=== PATIENT | male | born 1960 | race Caucasian/White ===

== ENCOUNTER 2016-08-22 11:30 | Emergency (ER) | payer OTHER ==
[~2016-08-22] VITALS: Ht 182.9 cm; Wt 112.0 kg
[2016-08-22 11:35] VITALS: Ht 182.9 cm; Wt 112.0 kg
[2016-08-22] MEDS ORDERED: LISI10TA2 PO (13:23)
[2016-08-22] MEDS ORDERED: AMLO-147 PO (13:23)
[2016-08-22] MEDS ORDERED: RIVA20TA PO (13:23)
[2016-08-22] MEDS ORDERED: GABA300C16 PO (13:23)
[2016-08-22] MEDS ORDERED: ASPI-664 PO (13:24)
[2016-08-22] MEDS ORDERED: FURO20TA3 PO (13:24)
[2016-08-22] MEDS ORDERED: CARV25TA97 PO (13:24)
[2016-08-22] MEDS ORDERED: ATOR40TA68 PO (13:25)
[2016-08-22] MEDS ORDERED: GLIP5TAB13 PO (13:25)
[2016-08-22] MEDS ORDERED: SOD CHLORIDE 0.9% 1,000 ML IV ONE (14:00)
[2016-08-22] MEDS ORDERED: PIPER-TAZO 3.375 GM IV (PMX) 100 ML IVPB ONE (14:00)
[2016-08-22 14:31] LABS: BASOPHILS % 0.5 % (0.0-2.0); EOSINOPHILS # 0.1 10^3/ul (0.0-0.5); EOSINOPHILS % 1.8 % (0.0-7.0); HEMATOCRIT 55.3 % (42.0-52.0); HEMOGLOBIN 18.6 g/dl (14.0-18.0); LYMPHOCYTES # 2.4 10^3/ul (0.8-2.9); LYMPHOCYTES % 29.9 % (15.0-51.0); MEAN CORPUSCULAR HEMOGLOBIN 34.1 pg (29.0-33.0); MEAN CORPUSCULAR HGB CONC 33.7 g/dl (32.0-37.0); MEAN CORPUSCULAR VOLUME 101.3 fl (82.0-101.0); MEAN PLATELET VOLUME 8.3 fl (7.4-10.4); MONOCYTE # 0.6 10^3/ul (0.3-0.9); MONOCYTES % 7.4 % (0.0-11.0); NEUTROPHIL # 4.8 10^3/ul (1.6-7.5); NEUTROPHILS % 60.4 % (39.0-77.0); PLATELET COUNT 178 10^3/UL (140-440); RED BLOOD COUNT 5.46 10^6/ul (4.70-6.10); RED CELL DISTRIBUTION WIDTH 12.7 % (11.5-14.5); UNCORRECTED WBC 7.9 10^3/ul (4.8-10.8); WHITE BLOOD COUNT 7.9 10^3/ul (4.8-10.8)
[2016-08-22 14:36] LABS: CONDITION 1; LH ANALYZER COMMENTS 1
[2016-08-22 14:39] LABS: ALBUMIN 4.2 g/dl (3.3-4.9); CHLORIDE 102 mmol/L (97-110); SODIUM 144 mmol/L (135-144)
[2016-08-22 14:40] LABS: POTASSIUM 3.7 mmol/L (3.5-5.1)
[2016-08-22 14:42] LABS: ANION GAP 17 (8-16); ASPARTATE AMINO TRANSFERASE 42 IU/L (15-46); BILIRUBIN,INDIRECT 1.1 mg/dl (0-1.1); BILIRUBIN,TOTAL 1.1 mg/dl (0.2-1.3); CARBON DIOXIDE 29 mmol/L (21-31); CREATININE 1.25 mg/dl (0.61-1.24)
[2016-08-22 14:43] LABS: ALANINE AMINOTRANSFERASE 58 IU/L (13-69); ALBUMIN/GLOBULIN RATIO 1.16; ALKALINE PHOSPHATASE 75 IU/L (42-121); BLOOD UREA NITROGEN 13 mg/dl (7-20); CALCIUM 9.4 mg/dl (8.4-10.2); GLUCOSE 135 mg/dl (70-220); TOTAL PROTEIN 7.8 g/dl (6.1-8.1)
[2016-08-22 14:50] LABS: C-REACTIVE PROTEIN < 0.5 mg/dl (0.0-0.9)
--- NOTE | 2016-08-22 15:06 | RADRPT ---
PROCEDURE: XR Right Tibia-Fibula CLINICAL INDICATION: Ulcer right leg, rule out osteomyelitis TECHNIQUE: AP and lateral radiographs were submitted COMPARISON: None FINDINGS: Osseous structures: appear well mineralized and intact with no fracture or destructive process iden tified. Joint spaces: Moderate osteoarthritic changes seen about the patellar femoral and femoral tibial kyler nt spaces. Soft tissues: Vascular calcification is noted. No radiopaque foreign body year subcutaneous air is evident. IMPRESSION: 1. No osseous destruction is evident 2. Moderate osteoarthritic change seen about the femoral tibial and patellar femoral joint spaces. 3. Vascular calcification. Physician Brandi Date Time Electronically viewed and signed by Physician Brandi on 08/22/2016 15:06 /
[2016-08-22] MEDS ORDERED: IODIXANOL LOCM 100 ML BTL ONE (15:34)
[2016-08-22] MEDS ORDERED: SOD CHLORIDE 0.9% 100 ML ONE (15:34)
--- NOTE | 2016-08-22 16:10 | RADRPT ---
PROCEDURE: CT Chest with contrast. CLINICAL INDICATION: Smoker with wheezing. TECHNIQUE: Helical axial sections were obtained through the chest with intravenous contrast enhanc ement. 85 ml of Visipaque 320 was used for the intravenous contrast. Coronal and sagittal reformat deniz images were obtained from the axial source images. Total exam DLP is 788.61 mGy-cm. CTDIvol is 16.55 mGy. One or more of the following dose reduction techniques were used: Automated exposure con trol, adjustment of the mA and/or kV according to patient size, use of iterative reconstruction tech nique. COMPARISON: None FINDINGS: There is mild patchy bronchiolitis in the right lower lobe posteriorly. In addition, there is bronc hial wall thickening and mild bronchiectasis in both lower lobes with right worse than left. The jayjay ngs are clear with no other airspace or interstitial disease. There is no pulmonary nodule or mass lesion. There is no mediastinal or hilar lymphadenopathy or mass. There is no axillary, supraclavicular, or internal mammary lymphadenopathy. The thoracic aorta is not dilated. There is calcification in the aorta consistent with atherosclero sis. There is no aortic dissection. The heart size is normal. There is extensive coronary artery calcification. There is no pleural effusion or pericardial effusion. Images through the upper abdomen demonstrate normal visualized portions of the liver, spleen, and ad renals. IMPRESSION: 1. Mild patchy bronchiolitis in the right lower lobe posteriorly. 2. Bronchial wall thickening and mild bronchiectasis in both lower lobes with right worse than left . 3. Atherosclerosis. 4. Extensive coronary artery calcification. 5. Otherwise unremarkable contrast enhanced CT scan of the chest. RPTAT: QQ .Isidoro Borrero MD, Date Time Electronically viewed and signed by .Isidoro Borrero MD, on 08/22/2016 16:09 .R/
--- NOTE | 2016-08-22 16:47 | ERD ---
ER Documentation Chief Complaint Date/Time DATE: 08/22/16 TIME: 16:38 Chief Complaint right leg wound, not healing, hx dm sent to r/o osteomyelitis HPI Patient is a very pleasant gentleman who is sent over here for an ulceration on his right lower extremity. He states it started initially as a small wound that was caused by walking into some rebar. He says initially it looked like a bruise and that it looks like it had healed. He says then it started to pop open and draining some bloody fluid. He went to the urgent care where they cut it open and then sent him over here for possible bony infection. He says he has not been running any fevers, having any significant pain, any redness around the wound, any significant swelling, any pus draining from the wound, he has not noticed any bad smells, he has not had any chills or rigors. He also denies any chest pain, shortness of breath, coughing, congestion, rhinorrhea, sore throat, or otalgia. ROS All systems reviewed and are negative except as per history of present illness. Medications Home Meds Reported Medications Glipizide* (Glipizide*) 5 Mg Tablet, 5 MG PO AC BREAKFAST, TAB 08/22/16 Atorvastatin* (Atorvastatin*) 40 Mg Tablet, 40 MG PO QHS, #30 TAB 08/22/16 Furosemide* (Furosemide*) 20 Mg Tablet, 20 MG PO DAILY, #60 TAB 08/22/16 Aspirin (Low Dose Aspirin) 81 Mg Tablet.dr, 81 MG PO DAILY, #30 TAB 08/22/16 Carvedilol* (Coreg*) 25 Mg Tablet, 25 MG PO BID, #60 TAB 08/22/16 Amlodipine Besylate* (Amlodipine Besylate*) 10 Mg Tablet, 10 MG PO DAILY, #30 TAB 08/22/16 Gabapentin* (Gabapentin*) 300 Mg Capsule, 300 MG PO TID, #90 CAP 08/22/16 Lisinopril* (Lisinopril*) 10 Mg Tablet, 10 MG PO DAILY, #30 TAB 08/22/16 Rivaroxaban* (Xarelto*) 20 Mg Tablet, 20 MG PO WITH DINNER, TAB 08/22/16 Allergies Allergies: Coded Allergies: No Known Allergy (Unverified , 08/22/16) PMhx/Soc Hx Cardiac Disorders: Yes Hx Miscellaneous Medical Probl: Yes (Diabetes) Smoking Status: Former smoker FmHx Family History: diabetes Physical Exam Vitals Vital Signs Date Time Temp Pulse Resp B/P Pulse Ox O2 Delivery O2 Flow Rate FiO2 08/22/16 11:35 98.0 72 20 142/106 98 Physical Exam Const: Well-developed well-nourished male sitting on the bed calmly Head: Atraumatic normocephalic Eyes: Normal Conjunctiva ENT: Normal External Ears, Nose and Mouth. Neck: Full range of motion..~ No meningismus. Resp: Patient has an end expiratory wheeze noted only on the right side. Cardio: Regular rate and rhythm, no murmurs Abd: Soft, non tender, non distended. Normal bowel sounds Skin: No petechiae or rashes, patient has a small ulceration noted on his right anterior salas from which is oozing a small amount of serous sanguinous blood, there is some mild surrounding erythema with warmth Back: No midline or flank tenderness Ext: No cyanosis, or edema, no calf pain or tenderness Neur: Awake and alert Psych: Normal Mood and Affect Result Diagram: 08/22/16 1415 08/22/16 1415 Results 24 hrs Laboratory Tests Test 08/22/16 14:15 Alanine Aminotransferase (ALT/SGPT) 58IU/L Albumin 4.2g/dl Albumin/Globulin Ratio 1.16 Alkaline Phosphatase 75IU/L Anion Gap 17 Aspartate Amino Transf (AST/SGOT) 42IU/L Basophils # 0.010^3/ul Basophils % 0.5% Blood Morphology Comment Blood Urea Nitrogen 13mg/dl C-Reactive Protein < 0.5mg/dl Calcium Level 9.4mg/dl Carbon Dioxide Level 29mmol/L Chloride Level 102mmol/L Creatinine 1.25mg/dl Direct Bilirubin 0.00mg/dl Eosinophils # 0.110^3/ul Eosinophils % 1.8% Globulin 3.60g/dl Glucose Level 135mg/dl Hematocrit 55.3% Hemoglobin 18.6g/dl Indirect Bilirubin 1.1mg/dl Lymphocytes # 2.410^3/ul Lymphocytes % 29.9% Mean Corpuscular Hemoglobin 34.1pg Mean Corpuscular Hemoglobin Concent 33.7g/dl Mean Corpuscular Volume 101.3fl Mean Platelet Volume 8.3fl Monocytes # 0.610^3/ul Monocytes % 7.4% Neutrophils # 4.810^3/ul Neutrophils % 60.4% Nucleated Red Blood Cells # 0.010^3/ul Nucleated Red Blood Cells % 0.0/100WBC Platelet Count 78426^3/UL Potassium Level 3.7mmol/L Red Blood Count 5.4610^6/ul Red Cell Distribution Width 12.7% Sodium Level 144mmol/L Total Bilirubin 1.1mg/dl Total Protein 7.8g/dl White Blood Count 7.910^3/ul Current Medications Medications (Trade) Dose Ordered Sig/Patrice Route PRN Reason Start Time Stop Time Status Last Admin Dose Admin Piperacillin Sod/ Tazobactam Sod 100 ml @ 200 mls/hr ONCE ONCE IVPB 08/22/16 14:00 08/22/16 14:29 DC 08/22/16 15:17 Sodium Chloride (NS) 1,000 ml @ 1,000 mls/hr Q1H ONCE IV 08/22/16 14:00 08/22/16 14:59 DC 08/22/16 15:17 IV Flush 10 ml 10 ml STK-MED ONCE .ROUTE 08/22/16 15:34 08/22/16 15:35 DC 08/22/16 15:34 Sodium Chloride (NS) 100 ml @ ud STK-MED ONCE .ROUTE 08/22/16 15:34 08/22/16 15:35 DC 08/22/16 15:34 Iodixanol (Visipaque Locm) 100 ml STK-MED ONCE .ROUTE 08/22/16 15:34 08/22/16 15:35 DC 08/22/16 15:34 Procedures/MDM 1642: Patient feels much improved. He appears stable for discharge with follow- up with wound care. I have also informed him of his CAT scan results. I am going to refer him to the wound care clinic and to primary care medicine for further evaluation and treatment as an outpatient. I have also advised him to return to the emergency department if he develops any new or worsening symptoms. Departure Diagnosis: Primary Impression: Cellulitis Site of cellulitis: extremity Site of cellulitis of extremity: lower extremity Laterality: right Qualified Code: L03.115 - Cellulitis of right lower extremity Additional Impressions: Bronchitis Diabetes Diabetes mellitus type: type 2 Diabetes mellitus complication status: without complication Diabetes mellitus intermediate designer insulin use: unspecified residential insulin use status Qualified Code: E11.9 - Type 2 diabetes mellitus without complication, unspecified residential insulin use status Condition: Good Patient Instructions: Acute Bronchitis, Cellulitis, DIABETES, General Info Referrals: SARITA KINCAID MD [facility] Additional Instructions: Take all the medications as prescribed. Call the primary care physician for follow-up in about your bronchitis. Please call the clinic for follow-up and further treatment of your ulceration and cellulitis of the right lower extremity. Please return to the emergency department if at any time you feel that you are developing any new or worsening symptoms. ELIAS LANCE Aug 22, 2016 16:47
[2016-08-22] MEDS ORDERED: AMOX1TAB10 PO (16:49)
[2016-08-22] MEDS ORDERED: BACTDS PO (16:49)
[2016-08-22] MEDS ORDERED: IPRA4AER INHALATION (16:50)
[2016-08-22] MEDS ORDERED: HYDR-906 PO (16:50)
[2016-08-22] MEDS ORDERED: BENZ100C70 PO (16:51)
[2016-08-22 17:12] VITALS: BP 145/78; PULSE 80; RESP 20
== END 2016-08-22 17:24 | disposition home or self-care (01) ==
LOC: E/R 11:30
DX: L03.115 Cellulitis of right lower limb (principal); E11.9 Type 2 diabetes mellitus without complications; Z72.0 Tobacco use; Z79.82 Long term (current) use of aspirin; Z79.84 Long term (current) use of oral hypoglycemic drugs
CPT/HCPCS: 36415; 71260; 73590; 80053; 85025; 85651; 86140; 87040; 87070; 96374; J2543; J7030; Q9967; Z7502; Z7610